=== PATIENT | female | born 1990 | race Two or more races ===

== ENCOUNTER 2016-08-30 07:21 | Emergency (ER) | payer SELFPAY ==
--- NOTE | 2016-08-30 09:26 | ER Document Report ---
HPI - HPI Patient complains to provider of: fever, bodyaches, sore throat Onset: Yesterday Onset/Duration: Gradual Quality of pain: Achy Pain Level: 5 Context: 25-year-old female complaining of sore throat, fever, myalgias, minimal cough since yesterday. No chest pain or shortness of breath. No abdominal pain or dysuria. No nausea vomiting or diarrhea. No rash. Influenza that was done in triage is negative. Associated Symptoms: None Exacerbated by: Other - Swallowing Relieved by: Denies Similar symptoms previously: No Recently seen / treated by doctor: No - ROS ROS below otherwise negative: Yes Systems Reviewed and Negative: Yes All other systems reviewed and negative - CARDIOVASCULAR Cardiovascular: DENIES: Chest pain - REPRODUCTIVE LMP: IUD Reproductive: DENIES: : - DERM Skin Color: Normal Skin Problems: None Past Medical History - General Information source: Patient - Social History Smoking Status: Former Smoker Chew tobacco use (# tins/day): No Frequency of alcohol use: None Drug Abuse: None Lives with: Spouse/Significant other Family History: Reviewed & Not Pertinent Patient has suicidal ideation: No Patient has homicidal ideation: No - Medical History Medical History: Negative Renal/ Medical History: Denies: Hx Peritoneal Dialysis Past Surgical History: Reports: Hx Section - x1, Hx Orthopedic Surgery - right hand bone cyst, right femur fx, lumbar fx's. - Immunizations Immunizations up to date: Yes Hx Diphtheria, Pertussis, Tetanus Vaccination: Yes - 2010 Hx Pneumococcal Vaccination: 07/24/00 Vertical Provider Document - CONSTITUTIONAL Agree With Documented VS: Yes Exam Limitations: No Limitations General Appearance: No Apparent Distress - INFECTION CONTROL TRAVEL OUTSIDE OF THE [place] IN LAST 30 DAYS: No - HEENT HEENT: Normocephalic, Pharyngeal Erythema - Bright red. negative: Conjuctival Injection, Tympanic Membrane Red - NECK Neck: Supple, Lymphadenopathy-Left - Anterior her vehicle, Lymphadenopathy- Right - Anterior cervical - RESPIRATORY Respiratory: Breath Sounds Normal, No Respiratory Distress O2 Sat by Pulse Oximetry: 97 - CARDIOVASCULAR Cardiovascular: Regular Rate, Regular Rhythm - GI/ABDOMEN Gastrointestinal: Abdomen Soft, Abdomen Non-Tender, No Organomegaly - BACK Back: Normal Inspection. negative: CVA Tenderness-Right, CVA Tenderness-Left Course - Re-evaluation Re-evalutation: 08/30/16 9:29 rapid strept is positive. will tx with pen vk. consult. dr. pineda per [facility] guidelines. - Vital Signs Vital signs: Temp Pulse Resp BP Pulse Ox 101.8 F H 122 H 20 112/71 97 08/30/16 07:31 08/30/16 07:31 08/30/16 07:31 08/30/16 07:31 08/30/16 07:31 Discharge - Discharge Clinical Impression: Streptococcal sore throat Fever Qualifiers: Fever type: unspecified Qualified Code(s): R50.9 - Fever, unspecified Condition: Good Disposition: HOME, SELF-CARE Instructions: Acetaminophen, Fever ([facility]), Penicillin V K ([facility]), Strep Throat ( [facility]) Additional Instructions: Drink 2 L of water daily Tylenol and Motrin for pain and discomfort Finish the penicillin even though you feel better Return to the emergency room for worsening symptoms or any concerns Prescriptions: Penicillin V Potassium [Penicillin Vk 500 mg Tablet] 500 mg PO QID #40 tablet Forms: Return to Work
[2016-08-30] MEDS ORDERED: ACETAMINOPHEN 325 MG TABLET PO ONE (09:27)
[2016-08-30] MEDS ORDERED: PENICILLIN V POTASSIUM 500 MG TABLET PO ONE (10:55)
[2016-08-30 11:28] VITALS: BP 117/60
== END 2016-08-30 11:25 | disposition home or self-care (01) ==
LOC: ER 07:21
DX: J02.0 Streptococcal pharyngitis (principal); R50.9 Fever, unspecified; R52 Pain, unspecified; J02.9 Acute pharyngitis, unspecified; Z87.891 Personal history of nicotine dependence
CPT/HCPCS: 87804; 87880; 99283